=== PATIENT | female | born 1995 | race Hispanic/Latino ===

== ENCOUNTER 2017-01-08 21:50 | Emergency (ER) | payer MEDICAID ==
[2017-01-08 21:50] VITALS: BMI 20.9
[2017-01-08 21:55] VITALS: RESP 16; TEMP 97.6
--- NOTE | 2017-01-08 22:49 | C.PDOC ---
History Of Present Illness 21 y/o female c/o sore throat, body aches, and fever since this morning. Pt states she took amoxicllin from her mother this morning. Took nothing for pain. No other associated symptoms. Time Seen by Provider: 01/08/17 22:27 Chief Complaint (Nursing): Flu-like Symptoms History Per: Patient History/Exam Limitations: no limitations Onset/Duration Of Symptoms: Days Current Symptoms Are (Timing): Still Present Location Of Pain: Throat Sick Contacts (Context): None Associated Symptoms: Fever, Sore Throat, Myalgias. denies: Vomiting, Diarrhea Ear Symptoms: Bilateral: None Recent travel outside of the [place]: No Past Medical History Reviewed: Historical Data, Nursing Documentation, Vital Signs Vital Signs: Last Vital Signs Temp 97.6 F 01/08/17 21:53 Pulse 78 01/08/17 22:57 Resp 16 01/08/17 22:57 BP 119/75 01/08/17 22:57 Pulse Ox 98 01/08/17 22:57 - Medical History PMH: No Chronic Diseases Family History: States: Unknown Family Hx - Social History Hx Tobacco Use: No Hx Alcohol Use: No Hx Substance Use: No - Immunization History Hx Tetanus Toxoid Vaccination: No Hx Influenza Vaccination: No Hx Pneumococcal Vaccination: No Review Of Systems Except As Marked, All Systems Reviewed And Found Negative. Constitutional: Positive for: Fever, Malaise ENT: Positive for: Throat Pain. Negative for: Ear Pain, Ear Discharge, Nose Congestion Cardiovascular: Negative for: Chest Pain Respiratory: Negative for: Cough, Shortness of Breath Physical Exam - Physical Exam Appears: Non-toxic, No Acute Distress Skin: Normal Color, Warm, Dry Head: Atraumatic, Normacephalic Eye(s): bilateral: Normal Inspection, PERRL, EOMI Ear(s): Bilateral: Normal Nose: Normal Oral Mucosa: Moist Throat: Erythema, No Exudate, No Drooling Neck: Normal ROM, Supple Lymphatic: Adenopathy (submandibular) Chest: Symmetrical Cardiovascular: Rhythm Regular Respiratory: Normal Breath Sounds, No Rales, No Rhonchi, No Wheezing Gastrointestinal/Abdominal: Soft, No Tenderness, No Guarding, No Rebound Back: Normal Inspection Extremity: Normal ROM, Capillary Refill (< 2 sec.) Neurological/Psych: Oriented x3, Normal Speech, Normal Cognition ED Course And Treatment O2 Sat by Pulse Oximetry: 100 (RA) Pulse Ox Interpretation: Normal Progress Note: Treated with Motrin. On reassessment, patient is resting comfortably, and is in no acute distress. Patient afebrile. Feels comfortable w / plan of discharge. Instructed to follow up with clinic/PMD within 1-2 days and take meds as directed. Disposition - Disposition Referrals: Olivia Hernández MD [Staff Provider] - Disposition: HOME/ ROUTINE Disposition Time: 22:48 Condition: STABLE Additional Instructions: PLEASE FOLLWO UP WITH PMD GARGLE WITH WARM SALT WATER INCEREASE PO FLUIDS RETURN TO ER IF WORSE Prescriptions: Amoxicillin 500 mg PO TID #21 tab Ibuprofen [Motrin] 600 mg PO Q6H #20 tab Instructions: Pharyngitis (ED) - Clinical Impression Clinical Impression: Pharyngitis - PA / PATIENT COORDINATOR FRONT DESK / Resident Statement MD/DO has reviewed & agrees with the documentation as recorded. - Scribe Statement The provider has reviewed the documentation as recorded by the Roroibmodesto luna All medical record entries made by the Roroibmodesto were at my direction and personally dictated by me. I have reviewed the chart and agree that the record accurately reflects my personal performance of the history, physical exam, medical decision making, and the department course for this patient. I have also personally directed, reviewed, and agree with the discharge instructions and disposition.
[2017-01-08 22:57] VITALS: BP 119/75; PULSE 78
[2017-01-09 00:02] VITALS: O2SAT 100
== END 2017-01-08 22:56 | disposition home or self-care (01) ==
LOC: C.ER 21:50
DX: J02.9 Acute pharyngitis, unspecified (principal)

== ENCOUNTER 2017-01-22 18:39 | Emergency (ER) | payer MEDICAID ==
[2017-01-22 18:39] VITALS: BMI 20.9
[2017-01-22 18:57] VITALS: BP 109/69; PULSE 90; RESP 18; TEMP 97.9; O2SAT 96
[2017-01-22] MEDS ORDERED: Bacitracin 500 Units/gm Oint Foilpak UD ONE (20:09)
--- NOTE | 2017-01-22 20:10 | C.PDOC ---
History Of Present Illness 21 yr old female presents to the ER for evaluation of swelling and redness to the tip of left, index finger. Patient states the swelling and redness is s/p a manicure few days ago. Patient denies other trauma, fever, hand pain, arm pain, weakness or numbness. Time Seen by Provider: 01/22/17 19:33 Chief Complaint (Nursing): Finger,Hand,&Wrist History Per: Patient History/Exam Limitations: no limitations Onset/Duration Of Symptoms: Days Past Medical History Reviewed: Historical Data, Nursing Documentation, Vital Signs Vital Signs: Last Vital Signs Temp 97.9 F 01/22/17 18:56 Pulse 90 01/22/17 18:56 Resp 18 01/22/17 18:56 BP 109/69 01/22/17 18:56 Pulse Ox 96 01/22/17 20:35 Family History: States: No Known Family Hx - Social History Hx Tobacco Use: No Hx Alcohol Use: No Hx Substance Use: No - Immunization History Hx Tetanus Toxoid Vaccination: No Hx Influenza Vaccination: No Hx Pneumococcal Vaccination: No Review Of Systems Except As Marked, All Systems Reviewed And Found Negative. Constitutional: Negative for: Fever Musculoskeletal: Positive for: Other ((+) Swelling and redness to the tip of left index finger. ). Negative for: Arm Pain, Hand Pain Neurological: Negative for: Weakness, Numbness Physical Exam - Physical Exam Appears: Non-toxic, No Acute Distress Skin: Warm, Dry, No Rash Eye(s): bilateral: Normal Inspection, PERRL Extremity: Normal ROM, Capillary Refill (<2), Other ((+) Right, 2nd Finger - Erythema, swelling and fluctuant area at the base of nail bed. No active draining. ) Pulses: Left Radial: Normal, Right Radial: Normal Neurological/Psych: Oriented x3, Normal Speech, Normal Motor, Normal Sensation ED Course And Treatment O2 Sat by Pulse Oximetry: 96 (RA ) Pulse Ox Interpretation: Normal Progress Note: I&D was done. Bacitracin was applied and wound was dressed. Patient was advised to follow up with wound check. - Incision & Drainage Of Abscess Anesthesia: Lidocaine 1% (Digital block ) Prep Used: Sterile Water Procedure: Drained Pus (Minimal pus), Irrigated Cavity W/Saline (Bacitracin dressing applied), Probed To Break Up Loculations Disposition Counseled Patient/Family Regarding: Diagnosis, Need For Followup, Rx Given - Disposition Referrals: Jennifer Hernández MD [Medical Doctor] - Disposition: HOME/ ROUTINE Disposition Time: 20:08 Condition: STABLE Additional Instructions: Take meds as directed keep wound clean ( wash with warm water and mild soap) Tylenol or advil for pain Apply baciracin oint Wound check with PMD in 2 days return to ER if worse Prescriptions: Cephalexin [cephalexin] 500 mg PO QID #28 cap Instructions: Paronychia (ED) Forms: [employer] (Japanese) - Clinical Impression Clinical Impression: Paronychia of finger of left hand - PA / INSPECTION CLERK / Resident Statement MD/DO has reviewed & agrees with the documentation as recorded. - Scribe Statement The provider has reviewed the documentation as recorded by the Scribe Thu Serrano All medical record entries made by the Scribe were at my direction and personally dictated by me. I have reviewed the chart and agree that the record accurately reflects my personal performance of the history, physical exam, medical decision making, and the department course for this patient. I have also personally directed, reviewed, and agree with the discharge instructions and disposition.
== END 2017-01-22 20:17 | disposition home or self-care (01) ==
LOC: C.ER 18:39
DX: L03.012 Cellulitis of left finger (principal)

== ENCOUNTER 2017-07-10 21:51 | Emergency (ER) | payer MEDICAID ==
[2017-07-10 21:51] VITALS: BMI 20.9
[2017-07-10 22:07] VITALS: BP 109/75; PULSE 71; TEMP 98.3; O2SAT 99
--- NOTE | 2017-07-10 22:39 | C.PDOC ---
History Of Present Illness 21 year old female presents to the ED c/o chest tightness just prior to arrival. Symptoms started while she was sitting down, lasted for a couple of minutes and was relieved by friends inhaler. Patient reports similar episodes in the past, she has gone to see her PMD and been to the ED and reports she as told it was due to second hand smoking. Patient denies fever, chills, cough, nausea, vomit, abdominal pain, recent travel ,sick contacts. Pt is requesting a work note for tomorrow. No leg swelling. No anxiety. No travel. Time Seen by Provider: 07/10/17 22:09 Chief Complaint (Nursing): Shortness Of Breath History Per: Patient History/Exam Limitations: no limitations Onset/Duration Of Symptoms: Hrs Current Symptoms Are (Timing): Gone Quality: Tightness Recent travel outside of the [place]: No Additional History Per: Patient Past Medical History Reviewed: Historical Data, Nursing Documentation, Vital Signs Vital Signs: Last Vital Signs Temp 98.3 F 07/10/17 22:02 Pulse 71 07/10/17 22:02 Resp 16 07/10/17 22:02 BP 109/75 07/10/17 22:02 Pulse Ox 99 07/10/17 22:42 - Medical History PMH: No Chronic Diseases Surgical History: No Surg Hx Family History: States: Unknown Family Hx - Social History Hx Tobacco Use: No Hx Alcohol Use: No Hx Substance Use: No - Immunization History Hx Tetanus Toxoid Vaccination: Yes Hx Influenza Vaccination: Yes Hx Pneumococcal Vaccination: Yes Review Of Systems Constitutional: Negative for: Fever, Chills Cardiovascular: Positive for: Chest Pain. Negative for: Palpitations Respiratory: Positive for: Shortness of Breath. Negative for: Cough Gastrointestinal: Negative for: Nausea, Vomiting, Abdominal Pain, Diarrhea Genitourinary: Negative for: Dysuria, Hematuria Musculoskeletal: Negative for: Back Pain Skin: Negative for: Rash Neurological: Negative for: Weakness, Numbness, Headache, Dizziness Physical Exam - Physical Exam Appears: Well, Non-toxic, No Acute Distress, Other (pt is smiling, speaking in full sentences, and facetiming on the phone, in no acute distress) Skin: Normal Color, Warm, Dry Head: Atraumatic, Normacephalic Eye(s): bilateral: Normal Inspection, PERRL, EOMI Ear(s): Bilateral: Normal Nose: No Discharge, No Deformity Oral Mucosa: Moist Throat: Normal, No Erythema, No Exudate Neck: Normal ROM, Supple Chest: Symmetrical Cardiovascular: Rhythm Regular Respiratory: Normal Breath Sounds, No Rales, No Rhonchi, No Wheezing Gastrointestinal/Abdominal: Soft, No Tenderness, No Guarding, No Rebound Extremity: Normal ROM, No Pedal Edema, No Calf Tenderness, No Deformity, No Swelling Neurological/Psych: Oriented x3, Normal Speech, Normal Cognition Gait: Steady ED Course And Treatment ECG: Interpreted By Me (Dr Parson), Viewed By Me ECG Rhythm: Sinus Rhythm Rate From EC O2 Sat by Pulse Oximetry: 99 (On RA) Pulse Ox Interpretation: Normal - Radiology CXR: Interpreted by Me, Viewed By Me CXR Interpretation: Yes: No Acute Disease Progress Note: Plan: -EKG. -CXR. On re-evaluation, pt denies SOB, chest pain. CTA. Pulse ox 98%. PT continues to by on the phone and laughing with friend, no evidence of distress. Discsused all causes have not been ruled out and further work up is necassary. Instructed to follow up with PMD in 1-2 days or return to ER if symtpoms persist or worsen. Case discussed with Dr Parson, agreed upon plan and discharge Disposition - Disposition Disposition: HOME/ ROUTINE Disposition Time: 22:47 Condition: STABLE Additional Instructions: Follow up with your primary medical doctor or clinic in 2-5 days for further evaluation. Take medications as prescribed. Return to the emergency department at any time if symptoms persist or worsen. Prescriptions: Albuterol HFA [Ventolin HFA 90 mcg/actuation (8 g)] 2 puff IH [id number] #1 puff Instructions: Dyspnea (ED) Forms: [facility] (Japanese), Work Excuse - Clinical Impression Clinical Impression: Dyspnea - PA / BSW / Resident Statement MD/DO has reviewed & agrees with the documentation as recorded. - Scribe Statement The provider has reviewed the documentation as recorded by the Scribe Reese Machuca All medical record entries made by the Scribe were at my direction and personally dictated by me. I have reviewed the chart and agree that the record accurately reflects my personal performance of the history, physical exam, medical decision making, and the department course for this patient. I have also personally directed, reviewed, and agree with the discharge instructions and disposition.
[2017-07-10 23:05] VITALS: RESP 20
--- NOTE | 2017-07-11 09:24 | RAD ---
Chest x-ray two views History: Infiltrate. Comparison: None available. Findings: No focal infiltrate or effusion. Bibasilar breast and nipple shadows. Heart size within normal limits. Impression: No focal infiltrate or effusion.
--- NOTE | 2017-07-14 00:11 | CARD ---
APPROVED REPORT EKG Measurement Heart [id number] <Conclusion> Normal sinus rhythm with sinus arrhythmia Normal ECG
== END 2017-07-10 23:04 | disposition home or self-care (01) ==
LOC: C.ER 21:51
DX: R06.00 Dyspnea, unspecified (principal)

== ENCOUNTER 2017-08-03 | Emergency (ER) | payer MEDICAID ==
[2017-08-03 00:01] VITALS: BMI 20.9
[2017-08-03 01:01] VITALS: RESP 20
--- NOTE | 2017-08-03 01:43 | C.PDOC ---
Time Seen by Provider: 08/03/17 01:42 Chief Complaint (Nursing): Cough, Cold, Congestion Past Medical History Vital Signs: Last Vital Signs Temp 98 F 08/03/17 00:55 Pulse 86 08/03/17 00:55 Resp 20 08/03/17 00:55 BP 100/68 08/03/17 00:55 Pulse Ox 100 08/03/17 00:55 - Medical History PMH: Asthma Family History: States: Unknown Family Hx - Social History Hx Tobacco Use: No Hx Alcohol Use: No Hx Substance Use: No - Immunization History Hx Tetanus Toxoid Vaccination: Yes Hx Influenza Vaccination: Yes Hx Pneumococcal Vaccination: Yes ED Course And Treatment O2 Sat by Pulse Oximetry: 100 Disposition Counseled Patient/Family Regarding: Studies Performed, Diagnosis - Disposition Disposition Time: 01:43
--- NOTE | 2017-08-03 01:51 | C.PDOC ---
History Of Present Illness pt states that she felt some chest tightness with cough as when her asthma is "acting up" took her inhaler and felt better. No f/c/n/v. Speaking in complete sentences Time Seen by Provider: 08/03/17 01:42 Chief Complaint (Nursing): Cough, Cold, Congestion History Per: Patient History/Exam Limitations: no limitations Onset/Duration Of Symptoms: Days Current Symptoms Are (Timing): Still Present Associated Symptoms: Cough Preciptating Factors: URI Severity: Moderate Pain Scale Rating Of: 4 Recent travel outside of the [facility]: No Additional History Per: Patient - Asthma History Medication Use: PRN Rescue Medications: See Home Medication List Control Medications: See Home Medication List Past Medical History Reviewed: Historical Data, Nursing Documentation, Vital Signs Vital Signs: Last Vital Signs Temp 98 F 08/03/17 00:55 Pulse 86 08/03/17 00:55 Resp 20 08/03/17 00:55 BP 100/68 08/03/17 00:55 Pulse Ox 100 08/03/17 01:51 - Medical History PMH: Asthma Family History: States: No Known Family Hx - Social History Hx Tobacco Use: No Hx Alcohol Use: No Hx Substance Use: No - Immunization History Hx Tetanus Toxoid Vaccination: Yes Hx Influenza Vaccination: Yes Hx Pneumococcal Vaccination: Yes Review Of Systems Constitutional: Negative for: Fever, Chills Eyes: Negative for: Redness ENT: Negative for: Throat Pain Cardiovascular: Negative for: Chest Pain Respiratory: Positive for: Cough, Shortness of Breath Gastrointestinal: Negative for: Abdominal Pain Musculoskeletal: Negative for: Back Pain Skin: Negative for: Rash Neurological: Negative for: Weakness Psych: Negative for: Anxiety Physical Exam - Physical Exam Appears: Non-toxic, No Acute Distress Skin: Warm, Dry Head: Normacephalic Eye(s): bilateral: Normal Inspection Ear(s): Bilateral: Normal Oral Mucosa: Moist Tongue: Normal Appearing Teeth: Normal Dentition Throat: No Erythema, No Exudate Neck: Trachea Midline, Supple Chest: Symmetrical Cardiovascular: Rhythm Regular Respiratory: No Rales, No Rhonchi, Wheezing (few) Gastrointestinal/Abdominal: Soft, No Tenderness Back: Normal Inspection Neurological/Psych: Oriented x3 Gait: Steady ED Course And Treatment O2 Sat by Pulse Oximetry: 100 Pulse Ox Interpretation: Normal Reevaluation Time: 02:56 Reassessment Condition: Improved Disposition Counseled Patient/Family Regarding: Studies Performed, Diagnosis, Need For Followup, Rx Given - Disposition Referrals: Olivia Hernández MD [Staff Provider] - Disposition: HOME/ ROUTINE Disposition Time: 01:47 Condition: FAIR Additional Instructions: Please return if symptoms recur Prescriptions: Prednisone [Deltasone] 20 mg PO DAILY #5 tablet Instructions: Asthma (DC) Forms: [facility] (Kazakh), Work Excuse - Clinical Impression Clinical Impression: Asthma exacerbation
[2017-08-03] MEDS: Albuterol-Ipratrop 3 mg / 0.5 (3 ml) UD IH SCH ×2 (02:29→02:30)
[2017-08-03] MEDS ORDERED: Albuterol-Ipratrop 3 mg / 0.5 (3 ml) UD ONE (03:00)
[2017-08-03 03:05] VITALS: BP 113/73; PULSE 95; TEMP 98.1; O2SAT 99
== END 2017-08-03 03:03 | disposition home or self-care (01) ==
LOC: C.ER
DX: J45.901 Unspecified asthma with (acute) exacerbation (principal)

== ENCOUNTER 2018-07-14 00:44 | Emergency (ER) | payer MEDICAID ==
[2018-07-14 00:44] VITALS: BMI 20.9
[2018-07-14 00:52] VITALS: BP 119/75; PULSE 66; RESP 20; TEMP 98.9; O2SAT 100
--- NOTE | 2018-07-14 01:08 | C.PDOC ---
History Of Present Illness 22 y/o female presents to the ED for evaluation of redness and itching to the left eye for the past few days. Denies any injury/trauma, eye pain, FB sensation, drainage from eye, or URI symptoms. Patient wears glasses, no contact lens use. No other complaints. Time Seen by Provider: 07/14/18 00:53 Chief Complaint (Nursing): Eye Problem History Per: Patient History/Exam Limitations: no limitations Onset/Duration Of Symptoms: Days Current Symptoms Are (Timing): Still Present Injury To Eye?: No Wears Contact Lens?: No Associated Symptoms: Itching Past Medical History Reviewed: Historical Data, Nursing Documentation, Vital Signs Vital Signs: Last Vital Signs Temp 98.9 F 07/14/18 00:47 Pulse 66 07/14/18 00:47 Resp 20 07/14/18 00:47 BP 119/75 07/14/18 00:47 Pulse Ox 100 07/14/18 00:47 - Medical History PMH: Asthma Family History: States: Unknown Family Hx - Social History Hx Tobacco Use: No Hx Alcohol Use: No Hx Substance Use: No - Immunization History Hx Tetanus Toxoid Vaccination: Yes Hx Influenza Vaccination: Yes Hx Pneumococcal Vaccination: Yes Review Of Systems Except As Marked, All Systems Reviewed And Found Negative. Constitutional: Negative for: Fever Eyes: Positive for: Redness (and itchiness to left eye). Negative for: Pain, Vision Change, Other (eye drainage or FB sensation) ENT: Negative for: Nose Discharge, Nose Congestion, Throat Pain Respiratory: Negative for: Cough Physical Exam - Physical Exam Appears: Well, Non-toxic, No Acute Distress Skin: Normal Color, Warm Eye(s): bilateral: PERRL, EOMI, left: Other (+ conjunctival injection, no drainage from eye, no periorbital swelling or tenderness) Oral Mucosa: Moist Neck: Supple Lymphatic: No Adenopathy Neurological/Psych: Oriented x3, Normal Cranial Nerves ED Course And Treatment O2 Sat by Pulse Oximetry: 100 (RA) Pulse Ox Interpretation: Normal Medical Decision Making Medical Decision Making: Impression: Conjunctivitis Plan: Patient will be discharged home with Rx for eye drops. Advised to follow up with eye doctor for re-evaluation. Disposition Counseled Patient/Family Regarding: Diagnosis, Need For Followup - Disposition Referrals: Olivia Hernández MD [Staff Provider] - Disposition: HOME/ ROUTINE Disposition Time: 01:12 Condition: GOOD Prescriptions: Polymyxin/Trimethoprim Sulfate [Polytrim Ophth Soln] 1 drop OS Q3H 7 Days #1 bottle Instructions: Conjunctivitis ([place]) (DC) Forms: [facility] (Lithuanian), General Discharge Instructions - POA Present On Arrival: None - Clinical Impression Clinical Impression: Conjunctivitis - Scribe Statement The provider has reviewed the documentation as recorded by the Sergo Burciaga Provider Attestation: All medical record entries made by the Sergo were at my direction and personally dictated by me. I have reviewed the chart and agree that the record accurately reflects my personal performance of the history, physical exam, medical decision making, and the department course for this patient. I have also personally directed, reviewed, and agree with the discharge instructions and disposition.
== END 2018-07-14 01:36 | disposition home or self-care (01) ==
LOC: C.ER 00:44
DX: H10.9 Unspecified conjunctivitis (principal)

== ENCOUNTER 2018-10-08 23:18 | Emergency (ER) | payer MEDICAID ==
[2018-10-08 23:18] VITALS: BMI 20.9
[2018-10-08 23:27] VITALS: BP 101/78; PULSE 84; RESP 16; TEMP 100.3; O2SAT 99
--- NOTE | 2018-10-09 00:04 | C.PDOC ---
History Of Present Illness 23 year old female presents to the ED c/o sore throat, body aches and fever that started after waking up. Patient reports she took some left over Amoxicillin 500 mg she had from a previous prescription. Patient did not take and Motrin or Tylenol. Patient denies earache, cough, SOB, wheezing,rash, recent travel, sick contacts. Time Seen by Provider: 10/08/18 23:41 Chief Complaint (Nursing): Fever History Per: Patient History/Exam Limitations: no limitations Onset/Duration Of Symptoms: Hrs Current Symptoms Are (Timing): Still Present Location Of Pain: Throat, Diffuse Myalgias Associated Symptoms: Fever, Myalgias Ear Symptoms: Bilateral: None Recent travel outside of the [place]: No Additional History Per: Patient Past Medical History Reviewed: Historical Data, Nursing Documentation, Vital Signs Vital Signs: Last Vital Signs Temp 100.3 F H 10/08/18 23:24 Pulse 84 10/08/18 23:24 Resp 16 10/08/18 23:24 BP 101/78 10/08/18 23:24 Pulse Ox 99 10/08/18 23:24 - Medical History PMH: Asthma Surgical History: No Surg Hx Family History: States: Unknown Family Hx - Social History Hx Tobacco Use: No Hx Alcohol Use: No Hx Substance Use: No - Immunization History Hx Tetanus Toxoid Vaccination: Yes Hx Influenza Vaccination: Yes Hx Pneumococcal Vaccination: Yes Review Of Systems Constitutional: Positive for: Fever. Negative for: Chills, Weakness Eyes: Negative for: Redness, Other (scleral icterus) ENT: Positive for: Throat Pain. Negative for: Mouth Swelling Respiratory: Negative for: Cough, Shortness of Breath Gastrointestinal: Negative for: Nausea, Vomiting, Diarrhea Genitourinary: Negative for: Dysuria Skin: Negative for: Rash Neurological: Negative for: Weakness, Numbness, Headache, Dizziness Physical Exam - Physical Exam Appears: Non-toxic, No Acute Distress Skin: Normal Color, Warm, No Rash Head: Atraumatic, Normacephalic Eye(s): bilateral: Normal Inspection (no scleral icterus), PERRL, EOMI Ear(s): Bilateral: Normal (no drainage) Nose: Other (enlarged nasal turbinates) Oral Mucosa: Moist Throat: Erythema (bilateral tonsils), Exudate (bilateral tonsils), Other (airway patent) Neck: Normal ROM, Supple Chest: Symmetrical Respiratory: No Accessory Muscle Use, Other (normal inspiratory effort) ED Course And Treatment O2 Sat by Pulse Oximetry: 99 (ON RA) Pulse Ox Interpretation: Normal Medical Decision Making Medical Decision Making: Plan: * Toradol 15 mg IM * Rapid streph * Throat culture Patient was prescribed antibiotics to complete at home, advised to use Motrin/Tylenol for pain and to follow up with PMD. Disposition Counseled Patient/Family Regarding: Diagnosis, Need For Followup, Rx Given - Disposition Disposition: HOME/ ROUTINE Disposition Time: 00:03 Condition: STABLE Prescriptions: Amoxicillin 500 mg PO TID #15 tablet Ibuprofen [Motrin Tab] 600 mg PO TID #21 tab Instructions: Sore Throat, Adult (DC), Sinusitis, Adult (DC) Forms: General Discharge Instructions, [facility] (Estonian), Work Excuse - Clinical Impression Clinical Impression: Acute tonsillitis, Sinusitis - PA / PSYCHOLOGY LECTURER / Resident Statement MD/DO has reviewed & agrees with the documentation as recorded. - Scribe Statement The provider has reviewed the documentation as recorded by the Scribe Reese Machuca All medical record entries made by the Scribe were at my direction and personally dictated by me. I have reviewed the chart and agree that the record accurately reflects my personal performance of the history, physical exam, medical decision making, and the department course for this patient. I have also personally directed, reviewed, and agree with the discharge instructions and disposition.
== END 2018-10-09 00:13 | disposition home or self-care (01) ==
LOC: C.ER 23:18
DX: J32.9 Chronic sinusitis, unspecified (principal); J03.90 Acute tonsillitis, unspecified
CPT/HCPCS: 81025; 87070; 87430; 96372; 99283; J1885